=== PATIENT | male | born 1985 | race Caucasian/White ===

== ENCOUNTER 2022-12-29 12:56 | Outpatient (CLI) | payer OTHER | END 2022-12-29 12:57 | disposition home or self-care (01) | LOC: TBSIIMAG 12:56 | PROVIDERS: ATTEND Internal Medicine | DX: M47.26 Other spondylosis with radiculopathy, lumbar region (principal); M48.061 Spinal stenosis, lumbar region without neurogenic claudication | CPT/HCPCS: 72148 ==